=== PATIENT | female | born 1970 | race African-American/Black ===

== ENCOUNTER 2021-01-03 06:21 | Emergency (ER) | payer MEDICARE, SELFPAY ==
[2021-01-03 06:22] VITALS: BP 128/103; PULSE 124; RESP 18; TEMP 36.1; O2SAT 99; BMI 26.7
--- NOTE | 2021-01-03 06:33 | EKG12_ITS ---
Test Reason : MEDICAL CLEARANCE Blood Pressure : / mmHG Vent. Rate : 097 BPM Atrial Rate : 097 BPM P-R Int : 166 ms QRS Dur : 086 ms QT Int : 378 ms P-R-T Axes : -17 041 037 degrees QTc Int : 480 ms Normal sinus rhythm Prolonged QT Abnormal ECG Confirmed by MARNI ESPOSITO, MATHEW ([id number]), newspaper editor ERLIN ESPINAL ([id number]) on 01/05/2021 9:41:11 AM Referred By: ADRIANO Confirmed By:MATHEW GRIDER MD
--- NOTE | 2021-01-03 06:33 | CT_ITS ---
STUDY: CT BRAIN WITHOUT CONTRAST REASON FOR EXAM: Female, 50 years old. Change in Mental Status RADIATION DOSAGE (If Supplied By Facility): CTDIvol = ( 44.99 ) mGy, DLP = ( 762.36 ) mGycm TECHNIQUE: Transaxial CT imaging of the brain was performed without administration of intravenous contrast material. Individualized dose optimization techniques were used for this CT. COMPARISON: No relevant priors. FINDINGS: Normal size ventricles and extra-axial spaces for the patient''s age. Normal white matter tracts of the cerebral hemispheres. There is no intracranial hemorrhage. There are no findings of an acute ischemic infarction. Normal visualized paranasal sinuses. CT/Brain/Head without Contrast IMPRESSION: Normal unenhanced CT scan of the brain. Electronically Signed: Edis Dillon MD at 8:13 EDT Tel , Service support ,
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
--- NOTE | 2021-01-03 06:45 | NURSING ---
NO OLD EKGS
[2021-01-03 07:04] LABS: Absolute Lymphocyte Count 1.48 X10^3/uL (0.83-4.51); Absolute Neutrophil Count 9.6 X10^3/uL (2.0-7.7); Basophil# 0.05 X10^3/uL; Basophil% 0.4 % (0-1); Eosinophil# 0.07 X10^3/uL; Eosinophils% 0.6 % (0-5); Hematocrit 49.3 % (37-47); Lymphocyte # 1.48 X10^3/ul (0.83-4.51); Lymphocyte % 12.5 % (19-41); Mean Corp Hgb Conc 32.5 g/dL (32-36); Mean Corpuscular Volume 89.3 fL (81-99); Mean Platelet Vol. 11.8 fl (6.2-12.0); Monocyte# 0.56 X10^3/uL; Monocyte% 4.7 % (0-10); NRBC Flagged by Analyzer 0 % (0-5); Neutrophil # 9.61 X10^3/uL (2.7-7.7); Neutrophil % 81.5 % (47-70); Platelet Count 228 K/mm3 (150-450); RBC Distribution Width CV 13.5 % (11.6-14.6); RBC Distribution Width SD 44.6 fl (35.1-43.9); Red Blood Count 5.52 M/mm3 (4.2-5.4); White Blood Count 11.8 K/mm3 (4.4-11.0)
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
[2021-01-03 07:29] LABS: Amphetamine Urine VISTA NEGATIVE (<1000 ng/mL); Barbiturate Urine VISTA NEGATIVE (< 200 ng/mL); Benzodiazepine Urine VISTA NEGATIVE (< 200 ng/mL); Cocaine Urine VISTA NEGATIVE (< 300 ng/mL); Ecstacy Urine VISTA NEGATIVE (< 500 ng/mL); Methadone Urine VISTA NEGATIVE (< 300 ng/mL); PCP Urine VISTA NEGATIVE (< 25 ng/mL); THC Urine VISTA NEGATIVE (< 50 ng/mL); Vista UDS pH Range 7
[2021-01-03 07:38] LABS: ALB/GLOB Ratio 0.8 RATIO (0.9-2.4); AST(SGOT) 12 U/L (15-37); Alanine Aminotransfer ALT/SGPT 13 U/L (13-56); Albumin, Serum 3.5 g/dL (3.2-5.0); Alkaline Phosphatase 122 U/L (45-117); Anion Gap 11 (5-15); BUN 16 mg/dL (7-18); BUN/Creat Ratio 12.7 RATIO (10-20); Calcium,Total 9.7 mg/dL (8.5-10.1); Chloride 102 mmol/L (98-107); Creatinine, Serum 1.26 mg/dL (0.55-1.02); EST Glomerular Filtration Rate 48 mL/min (>60); Est Glom Filt Rate - Afr Amer 58 mL/min (>60); Estimated Creatinine Clearance 55.08 ml/min; Globulin 4.5 g/dL (2.2-4.2); Glucose 251 mg/dL (74-106); Sodium Level 136 mmol/L (136-145); Thyroid Stim Hormone (TSH) 1.97 uIU/mL (0.358-3.74)
[2021-01-03 08:06] LABS: Color, Urine Yellow (Yellow); Glucose, Dipstick 100 mg/dl (Normal); Ketone-Dipstick 15 mg/dl (Negative); Leukocyte Esterase-Dipstick 25 /ul (Negative); Nitrite-Dipstick Negative (Negative); Occult Blood-Urine 150 /ul (Negative); Protein-Dipstick 100 mg/dl (Negative); Urine Bilirubin Dipstick Negative (Negative); Urine Clarity Cloudy (Clear); Urine Urobilinogen 1 mg/dl (Normal)
[2021-01-03 08:17] LABS: Bacteria 3+ /hpf (None Seen); Hyaline Cast 5-10 SEEN /lpf (0-5); Mucous, Urine 1+ /hpf (<or=2+); Red Blood Cells-Urine 5-10 SEEN /hpf (0-5); Squamous Epithelial Cells - UA 10-25 SEEN /hpf (5-10); White Blood Cells 0-5 SEEN /hpf (0-5)
[2021-01-03 08:20] VITALS: RESP 18
--- NOTE | 2021-01-03 08:56 | ED.RN ---
PT BROTHER, JOSSY, CALLED. WILLING TO COME [employer] IF SHE IS DISCHARGE OR NEEDS TRANSPORT. HE BELIEVES THAT SHE WAS RECENTLY ADMITTED TO [facility] IN [place], [place]. PHONE NUMBER [phone]
--- NOTE | 2021-01-03 09:19 | NURSING ---
CALLED CRISIS. FAXED CHART TO
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
[2021-01-03 10:59] VITALS: BP 120/82; PULSE 105; RESP 16; O2SAT 99
[2021-01-03 12:21] VITALS: BP 158/85; PULSE 104; RESP 16; O2SAT 100
[2021-01-03 14:57] VITALS: BP 149/83; PULSE 98; RESP 16; O2SAT 98
--- NOTE | 2021-01-03 15:04 | NURSING ---
FAXED PINK SLIP, COVID PAPER, AND MEDICAL CLEARANCE TO [facility]
--- NOTE | 2021-01-03 15:25 | ED.RN ---
Report called to Vaibhav Chanel.
== END 2021-01-03 19:09 ==
PROVIDERS: Emergency Provider Emergency Medicine
DX: F23 Brief psychotic disorder (principal); F25.9 Schizoaffective disorder, unspecified
CPT/HCPCS: 70450; 80053; 80307; 81001; 82077; 84443; 85025; 87426; 93005; 99285